=== PATIENT | female | born 1955 | race Caucasian/White ===

== ENCOUNTER 2021-06-18 17:27 | Emergency (ER) | payer MEDICARE ==
[2021-06-18] MEDS ORDERED: Acetaminophen 500 MG TAB ONE (18:34)
== END 2021-06-18 18:39 | disposition home or self-care (01) ==
LOC: BURERS 17:27
DX: S02.2XXA Fracture of nasal bones, initial encounter for closed fracture (principal); S05.11XA Contusion of eyeball and orbital tissues, right eye, initial encounter; S09.90XA Unspecified injury of head, initial encounter; E11.9 Type 2 diabetes mellitus without complications; I10 Essential (primary) hypertension; Z79.899 Other long term (current) drug therapy; W19.XXXA Unspecified fall, initial encounter
CPT/HCPCS: 70450; 70486; 72125

== ENCOUNTER 2021-10-13 12:53 | Emergency (ER) | payer MEDICARE, OTHER ==
[2021-10-13] MEDS ORDERED: Acetaminophen 500 MG TAB ONE (13:50)
[2021-10-13] MEDS ORDERED: Bacitracin 1 PK ONE (13:59)
== END 2021-10-13 14:21 | disposition home or self-care (01) ==
LOC: BURERS 12:53
DX: S01.81XA Laceration without foreign body of other part of head, initial encounter (principal); S80.02XA Contusion of left knee, initial encounter; I10 Essential (primary) hypertension; W19.XXXA Unspecified fall, initial encounter
CPT/HCPCS: 12011; 70450

== ENCOUNTER 2023-02-10 11:23 | Emergency (ER) | payer MEDICARE ==
[2023-02-10 11:39] LABS: Bilirubin Small (Negative); Blood, Urine Moderate (Negative); Clarity Slightly Cloudy (Clear); Glucose, Urine (Dipstick) 250 mg/dL (Negative); Ketone, Urine Trace mg/dL (Negative); Leukocyte Negative (Negative); Nitrite Positive (Negative); Protein, Urine (Dipstick) 100 mg/dL (Neg-Trace)
[2023-02-10 11:40] LABS: Specific Gravity, Urine 1.026 (1.002-1.036)
[2023-02-10 11:46] LABS: Bacteria/HPF 1+ HPF (None Seen); CAUTI Indications for Culture Dysuria,urgency,freq
[2023-02-10 11:47] LABS: Urine Culture Reflex Yes Yes
[2023-02-10] MEDS ORDERED: cefTRIAXone (ROCEPHIN) 1 GM VIAL ONE ×2 (11:54→13:54)
== END 2023-02-10 12:01 | disposition home or self-care (01) ==
LOC: BURERS 11:23
DX: N39.0 Urinary tract infection, site not specified (principal); E11.9 Type 2 diabetes mellitus without complications; I10 Essential (primary) hypertension
CPT/HCPCS: 81001; 87086; 96372; 99283; J0696